=== PATIENT | male | born 1990 | race Caucasian/White ===

== ENCOUNTER 2017-12-01 19:31 | Emergency (ER) | payer OTHER ==
[~2017-12-01] VITALS: Ht 172.7 cm; Wt 90.7 kg
[2017-12-01 19:32] VITALS: BP 128/72
[2017-12-01] MEDS ORDERED: Motrin,Rufen800 MG PO (20:13)
== END 2017-12-01 20:14 | disposition home or self-care (01) ==
LOC: ED 19:31
DX: T15.02XA Foreign body in cornea, left eye, initial encounter (principal); Y92.9 Unspecified place or not applicable

== ENCOUNTER 2021-02-05 15:07 | Emergency (ER) | payer BC ==
[~2021-02-05] VITALS: Ht 175.2 cm; Wt 95.3 kg
[~2021-02-05 15:07] MED LIST: Motrin,Rufen800 MG PO
[2021-02-05 15:12] VITALS: BP 140/86
[2021-02-05] MEDS ORDERED: PREDNISONE50 MG PO (16:50)
== END 2021-02-05 16:52 | disposition home or self-care (01) ==
LOC: ED 15:07
DX: L25.9 Unspecified contact dermatitis, unspecified cause (principal); Z79.899 Other long term (current) drug therapy

== ENCOUNTER 2021-04-22 08:57 | Emergency (ER) | payer BC ==
[~2021-04-22] VITALS: Ht 152.4 cm; Wt 95.3 kg
[~2021-04-22 08:57] MED LIST changes: +PREDNISONE50 MG PO
[2021-04-22 09:09] VITALS: BP 127/79
[2021-04-22] MEDS ORDERED: TEMOVATE30 GM T (09:34)
[2021-04-22] MEDS ORDERED: ALA-CORT28.4 GM T (09:34)
== END 2021-04-22 09:54 | disposition home or self-care (01) ==
LOC: ED 08:57
DX: L25.9 Unspecified contact dermatitis, unspecified cause (principal)

== ENCOUNTER 2021-12-17 05:14 | Emergency (ER) | payer BC ==
[~2021-12-17] VITALS: Ht 172.7 cm; Wt 97.1 kg
[~2021-12-17 05:14] MED LIST changes: +ALA-CORT28.4 GM T; +TEMOVATE30 GM T
[2021-12-17 05:50] VITALS: BP 134/72
[2021-12-17 06:15] LABS: BASO # 0.1 10*3/uL (0.0-0.1); BASO % 0.7 % (0.0-1.0); EOS # 0.2 10*3/uL (0.0-0.4); EOS % 2.6 % (1.0-4.0); HEMATOCRIT 47.6 % (42.0-52.0); LYMPH # 2.3 10*3/uL (1.3-4.4); LYMPH % 28.4 % (27.0-41.0); MEAN CELL VOLUME 90.5 fl (80.0-94.0); MEAN CORPUSCULAR HGB 29.8 pg (27.0-31.0); MONO # 0.7 10*3/uL (0.1-1.0); MONO % 9.2 % (3.0-9.0); NEUT # 4.7 10*3/uL (2.3-7.9); NEUT % 58.4 % (47.0-73.0); PLATELET COUNT AUTOMATED 207 10*3/uL (130-400); RED BLOOD COUNT 5.26 10*6/uL (4.50-5.90); RED CELL DISTRI WIDTH 12.5 % (0-14.5)
[2021-12-17 06:28] LABS: ALKALINE PHOSPHATASE 96 U/L (45-117); BUN 11 mg/dl (7-24); CHLORIDE 109 mmol/L (98-107); CREATININE 0.76 mg/dL (0.70-1.30); POTASSIUM 3.9 mmol/L (3.5-5.1); SGOT/AST 21 IU/L (3-35); SGPT/ALT 34 U/L (12-78); SODIUM 140 mmol/L (136-145); TOTAL PROTEIN 7.2 gm/dL (6.4-8.2)
[2021-12-17 06:40] LABS: ETHYL ALCOHOL < 3.0 mg/dl (<3)
[2021-12-17] MEDS ORDERED: ZOFRAN4 MG PO (07:43)
[2021-12-17] MEDS ORDERED: ATIVAN1 MG PO (07:43)
== END 2021-12-17 07:45 | disposition home or self-care (01) ==
LOC: ED 05:14
PROVIDERS: Emergency Medicine
DX: R11.0 Nausea (principal); R53.1 Weakness; R41.0 Disorientation, unspecified; R05.9 Cough, unspecified

== ENCOUNTER 2024-04-24 10:36 | Emergency (ER) | payer BC ==
[~2024-04-24] VITALS: Ht 175.2 cm; Wt 95.3 kg
[~2024-04-24 10:36] MED LIST changes: +ATIVAN1 MG PO; +ZOFRAN4 MG PO
[2024-04-24 10:45] VITALS: BP 151/103
[2024-04-24] MEDS ORDERED: FLUONAZOLE150 M1 PO (11:12)
== END 2024-04-24 11:14 | disposition home or self-care (01) ==
LOC: ED 10:36
DX: B35.3 Tinea pedis (principal)

== ENCOUNTER 2024-06-19 13:12 | Emergency (ER) | payer BC ==
[~2024-06-19] VITALS: Wt 90.7 kg
[~2024-06-19 13:12] MED LIST changes: +FLUONAZOLE150 M1 PO
[2024-06-19 13:24] VITALS: BP 142/87
[2024-06-19 16:15] LABS: BASO # 0.1 10*3/uL (0.0-0.1); BASO % 0.7 % (0.0-1.0); EOS # 0.2 10*3/uL (0.0-0.4); EOS % 2.3 % (1.0-4.0); HEMATOCRIT 46.4 % (42.0-52.0); MEAN CELL VOLUME 93.2 fl (80.0-94.0); MEAN CORPUSCULAR HGB 30.5 pg (27.0-31.0); MEAN CORPUSCULAR HGB CONC 32.8 g/dl (33.0-37.0); MEAN PLATELET VOLUME 9.8 fl (9.6-12.3); MONO # 0.9 10*3/uL (0.1-1.0); MONO % 8.6 % (3.0-9.0); NEUT # 6.1 10*3/uL (2.3-7.9); NEUT % 61.7 % (47.0-73.0); PLATELET COUNT AUTOMATED 211 10*3/uL (130-400); RED BLOOD COUNT 4.98 10*6/uL (4.50-5.90); RED CELL DISTRI WIDTH 13.2 % (0-14.5)
[2024-06-19 16:36] LABS: BUN 8 mg/dl (9-23); CHLORIDE 104 mmol/L (98-107)
[2024-06-19] MEDS ORDERED: VIBRAMYCIN100 MG PO (17:48)
[2024-06-19] MEDS ORDERED: CEPHALEXIN500 M1 PO (17:48)
== END 2024-06-19 18:00 | disposition home or self-care (01) ==
LOC: ED 13:12
PROVIDERS: Physician Assistant Medical
DX: L03.116 Cellulitis of left lower limb (principal); L03.115 Cellulitis of right lower limb

== ENCOUNTER 2025-07-23 08:56 | Emergency (ER) | payer BC ==
[~2025-07-23] VITALS: Ht 175.2 cm; Wt 90.7 kg
[~2025-07-23 08:56] MED LIST changes: +CEPHALEXIN500 M1 PO; +VIBRAMYCIN100 MG PO
[2025-07-23 09:18] VITALS: BP 159/76
[2025-07-23 09:51] LABS: BASO # 0.1 10*3/uL (0.0-0.1); BASO % 0.8 % (0.0-1.0); EOS # 0.1 10*3/uL (0.0-0.4); EOS % 1.4 % (1.0-4.0); MEAN CELL VOLUME 93.6 fl (80.0-94.0); MEAN CORPUSCULAR HGB 30.8 pg (27.0-31.0); MEAN PLATELET VOLUME 10.1 fl (9.6-12.3); MONO # 0.7 10*3/uL (0.1-1.0); MONO % 7.9 % (3.0-9.0); NEUT # 5.4 10*3/uL (2.3-7.9); NEUT % 64.7 % (47.0-73.0); NUCLEATED RED BLOOD CELL 0.0 % (0.0-0.0); NUCLEATED RED BLOOD CELL 0.0 10*3/uL (0.0-0.0); PLATELET COUNT AUTOMATED 203 10*3/uL (130-400); RED CELL DISTRI WIDTH 12.8 % (0-14.5)
[2025-07-23 10:04] LABS: ACT PARTIAL THROMBO TIME 27.0 SECONDS (20.0-32.1)
[2025-07-23 10:19] LABS: BUN 11 mg/dl (9-23); SGPT/ALT 17 U/L (5-49)
== END 2025-07-23 10:35 | disposition home or self-care (01) ==
LOC: ED 08:56
PROVIDERS: Student in an Organized Health Care Education/Training Program
DX: K92.1 Melena (principal)